=== PATIENT | female | born 1940 | race Caucasian/White ===

== ENCOUNTER 2016-08-12 14:29 | Emergency (ER) | payer MEDICARE | END 2016-08-12 16:00 | disposition home or self-care (01) | LOC: FER 14:29 | DX: T78.49XA Other allergy, initial encounter (principal); E11.9 Type 2 diabetes mellitus without complications ==

== ENCOUNTER 2021-01-29 13:21 | Emergency (ER) | payer MEDICARE ==
[2021-01-29 15:33] LABS: CORONAVIRUS 2019 SARS-COV-2 NEGATIVE (NEGATIVE); INFLUENZA A NAA NEGATIVE (NEGATIVE)
[2021-01-29] MEDS ORDERED: VENTOLIN HFA IN18 GM INH (18:14)
[2021-01-29] MEDS ORDERED: PREDNISONE 20MG20 MG PO (18:14)
== END 2021-01-29 18:34 | disposition home or self-care (01) ==
LOC: FER 13:21
PROVIDERS: Emergency Medicine
DX: J18.9 Pneumonia, unspecified organism (principal); I10 Essential (primary) hypertension; E78.5 Hyperlipidemia, unspecified; Z20.822 Contact with and (suspected) exposure to COVID-19; Z88.6 Allergy status to analgesic agent; Z79.82 Long term (current) use of aspirin; Z79.899 Other long term (current) drug therapy
CPT/HCPCS: 71045; U0002